=== PATIENT | female | born 1990 | race Caucasian/White ===

== ENCOUNTER 2017-03-28 16:17 | Emergency (ER) | payer SELFPAY ==
--- NOTE | 2017-03-28 16:39 | NUR ---
PT CALLED TWICE FOR TRIAGED. NO RESPONSE IN THE LOBBY.
== END 2017-03-28 16:47 | disposition left against medical advice (07) ==
LOC: MED 16:17
DX: Z53.21 Procedure and treatment not carried out due to patient leaving prior to being seen by health care provider (principal)